=== PATIENT | male | born 1995 | race Caucasian/White ===

== ENCOUNTER 2016-08-31 18:28 | Emergency (ER) | payer BC ==
[2016-08-31] MEDS ORDERED: Lactated Ringers 1,000 ML IV ONE (18:58)
[2016-08-31] MEDS ORDERED: Famotidine 20 MG/2 ML SDV IVPUSH ONE (18:58)
[2016-08-31] MEDS ORDERED: Pantoprazole 40 MG Vial IVPUSH ONE (18:58)
[2016-08-31] MEDS ORDERED: Sodium Chloride 0.9% 10 ML Syringe FLUSH PRN (18:58)
[2016-08-31] MEDS ORDERED: Ondansetron 4 MG/2 ML SDV IVPUSH ONE (18:58)
--- NOTE | 2016-08-31 18:58 | EDM.PDOC ---
ED HPI GENERAL MEDICAL PROBLEM - General Chief Complaint: General Stated Complaint: cough, cold Time Seen by Provider: 08/31/16 18:50 Source of Information: Reports: Patient, Old records ([facility] chart/EMR) History Limitations: Reports: No Limitations - History of Present Illness INITIAL COMMENTS - FREE TEXT/NARRATIVE: The patient drove himself to the emergency room for evaluation of nonspecific fever, chills, mild sore throat, nasal drainage, mild clear productive cough, mild anorexia, nonspecific mild abdominal pain, mild nausea without emesis, and generalized arthralgias with patient rating his generalized arthralgias at 8/ 10. He denies any known exposure to infection, however he did not get his influenza booster this season. The patient did miss work for the last 2 days secondary to the symptoms with symptoms starting about 3 days ago. He did not measure his temperature with last ibuprofen dose of 800 mg yesterday with no antipyretic medications or other medications today Onset: gradual Duration: Day(s): (As above) Location: Reports: generalized Severity: moderate Improves with: Reports: None Worsens with: Reports: None Context: Reports: Other (As above) Associated Symptoms: Reports: cough, cough w sputum, diaphoresis, fever/chills, headaches, loss of appetite, nausea/vomiting, weakness (Nonspecific generalized) . 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 Denies: Allergic rhinitis, Glaucoma, Hard of hearing, Impaired vision, Macular degeneration, Retinal detachment Other HEENT History: recurrent otitis media as a child Cardiovascular History: Denies: Afib, Aneurysm, Arrhythmia, Blood clots/VTE/DVT , CAD, Heart murmur, High cholesterol, Hypertension, Syncope Respiratory History: Reports: None. Denies: Asthma, COPD, Intubation, previous , PE, Pneumothorax, Sleep apnea Gastrointestinal History: Reports: None. Denies: Celiac disease, Cholelithiasis , Chronic constipation, Chronic diarrhea, Gastritis, GERD, GI bleed, Hepatitis, Helicobacter pylori, Hiatal hernia, Inflammatory bowel disease, Irritable bowel syndrome, Jaundice, Pancreatitis, PUD Genitourinary History: Denies: Acute renal failure, BPH, Chronic renal insuffiency, Renal calculus, Retention, urinary, STD, Urinary incontinence, UTI , recurrent Musculoskeletal History: Reports: None. Denies: Amputation, Arthritis, Back pain, chronic, Fracture, Gout, Neck pain, chronic, Osteoarthritis, RA, SLE Neurological History: Reports: Concussion, Head trauma, Other (see below). Denies: Cerebral aneurysms, CVA, Headaches, chronic, Migraines, Seizure, TIA Other Neuro History: Head concussions at age 12 Psychiatric History: Reports: None. Denies: Abuse, victim of, ADD, ADHD, Addiction, Anxiety, Depression, Psych Hospitalization(s), PTSD, Suicide attempt , Suicidal ideation Endocrine/Metabolic History: Reports: None. Denies: Diabetes, type I, Diabetes , type II, Hypothyroidism, IDDM Hematologic History: Reports: None. Denies: Anemia, Blood transfusion(s), Iron deficiency Immunologic History: Reports: None. Denies: AIDS, HIV, SLE Oncologic (Cancer) History: Reports: None. Denies: Basal cell carcinoma, Hodgkin's Lymphoma, Lymphoma, Malignant melanoma, Non-Hodgkin's Lymphoma, Squamous cell carcinoma Dermatologic History: Denies: Eczema, Psoriasis - Infectious Disease History Infectious Disease History: Reports: Chicken pox. Denies: C-difficile, Measles , Meningitis, Mononucleosis, MRSA, Mumps, Pertussis (whooping cough), Rheumatic Fever, Rubella, Scarlet fever, Shingles, VRE - Past Surgical History Head Surgeries/Procedures: Reports: None HEENT Surgical History: Reports: Myringotomy w tube(s), Other (see below). Denies: Adenoidectomy, Detached retina, Eye surgery, Laser surgery, LASIK, Naso- sinus surgery, Oral surgery, Tonsillectomy Other HEENT Surgeries/Procedures: Bilateral PE tubes as a child Cardiovascular Surgical History: Reports: None. Denies: Varicose Respiratory Surgical History: Reports: None. Denies: Thoracentesis GI Surgical History: Denies: Appendectomy, Cholecystectomy, Colonoscopy, EGD, Hernia, abdominal, Hernia, inguinal, Hernia repair/other, Polypectomy Male Surgical History: Reports: Circumcision, Other (see below). Denies: Vasectomy Other Male Surgeries/Procedures: Circumcision as an Endocrine Surgical History: Reports: None. Denies: Thyroid biopsy Neurological Surgical History: Reports: None. Denies: C-Spine, Discectomy, Laminectomy, Lumbar spine, Sacral Spine, Spinal fusion, Vertebroplasty Musculoskeletal Surgical History: Reports: None. Denies: Arthroscopic procedure , Carpal tunnel, Ganglion cyst, Joint replacement, ORIF, Shoulder surgery Oncologic Surgical History: Reports: None Dermatological Surgical History: Reports: None - Past Imaging History Past Imaging History: Reports: CAT scan (CT scan of the head at age 12 secondary to previous head concussion) Social & Family History - Tobacco Use Smoking Status *Q: Current Every Day Smoker Tobacco Use Within Last Twelve Months: Cigarettes Years of Tobacco use: 6 Packs/Tins Daily: 0.5 (Maximum use of 1 pack per day) Smoking Cessation Information Provided To Patient: Yes Second Hand Smoke Exposure: No - Caffeine Use Caffeine Use: Reports: Coffee (3 cup per day), Soda (2 Sodas per week), Tea (1 Glass per week). Denies: Energy drinks - Alcohol Use Alcohol Use History: Yes Days Per Week of Alcohol Use: 1 (No previous DWIs, problems with alcohol abuse, etc.) Number of Drinks Per Day: 2 (Usually beer) Total Drinks Per Week: 2 Alcohol Use in Last Twelve Months: Yes Alcohol Use Frequency: Socially - Recreational Drug Use Recreational Drug Use: No Drug Use in Last 12 Months: No Recreational Drug Type: Denies: Amphetamines (Speed), Cocaine, Heroin, Inhalants (Glues, Solvents, Aerosols), LSD (Acid), Marijuana/Hashish, Methamphetamine, Morphine - Living Situation & Occupation Living situation: Reports: single (One child), with significant other ( Significant other and son), alone Occupation: employed (Air-condition and refresh technician) ED ROS GENERAL - Review of Systems Review Of Systems: See Below Constitutional: Reports: Fever (Temperature not measured), Chills, Weakness ( Nonspecific generalized), Fatigue (Nonspecific generalized), Night Sweats, Decreased Appetite. Denies: Diaphoresis, Weight Loss, Weight Gain HEENT: Reports: Rhinitis, Throat Pain. Denies: Contact Lenses, Dental Pain, Ear Discharge, Ear Pain, Eye Discharge, Eye Pain, Glasses, Hearing Loss, Nose Pain, Sinus Problem, Throat Swelling, Vertigo, Vision Change Respiratory: Reports: Cough, Sputum (Clear). Denies: Wheezing, Pleuritic Chest Pain, Hemoptysis Cardiovascular: Reports: No Symptoms. Denies: Chest Pain, Blood Pressure Problem, Dyspnea on Exertion, Edema, Lightheadedness, Orthopnea, Palpitations, Syncope Endocrine: Reports: No Symptoms. Denies: Fatigue GI/Abdominal: Reports: Abdominal Pain (Nonspecific generalized), Anorexia, Nausea, Other (Normal bowel movement today). Denies: Black Stool, Bloody Stool , Constipation, Diarrhea, Decreased Appetite, Difficulty Swallowing, Distension , Flatus, Hematemesis, Hematochezia, Melena, Mucous in Stool, Stool Incontinence , Vomiting : Reports: No Symptoms. Denies: Discharge, Dysuria, Flank Pain, Frequency, Hematuria, Incontinence, Pain, Urgency, Urinary Retention Musculoskeletal: Reports: Joint Pain (Generalized), Muscle Pain (Generalized). Denies: Joint Swelling Skin: Reports: No Symptoms. Denies: Pallor, Diaphoresis, Pruritis, Rash, Wound Neurological: Reports: Weakness (Nonspecific generalized). Denies: Confusion, Dizziness, Headache, Numbness, Paresthesia, Tingling Psychiatric: Reports: No Symptoms. Denies: Agitation, Anxiety, Confusion, Depression, Hallucinations, Suicidal Ideation Hematologic/Lymphatic: Reports: No Symptoms Immunologic: Reports: No Symptoms ED EXAM, GENERAL - Physical Exam Exam: See Below Exam Limited By: No Limitations General Appearance: Alert, WD/WN, No Apparent Distress Eye Exam: Bilateral Eye: EOMI, Normal Inspection (No nystagmus), PERRL Ears: Normal External Exam, Normal Canal, Hearing Grossly Normal, Normal TMs ( With exception of moderate bilateral scarring left greater than right secondary to previous otitis media) Nose: Normal Mucosa, No Blood, Clear Rhinorrhea (Mild bilateral) Throat/Mouth: Normal Lips, Normal Oropharynx (Trace erythema posterior pharynx and tonsils with no pinpoint white exudates or peritonsillar abscess, mild dry oral mucosa), Normal Voice, No Airway Compromise. No: Normal Teeth (Who is in care at the base of right first premolar), Dysphagia, Perioral Cyanosis Head: Atraumatic, Normocephalic. No: Facial Swelling, Facial Tenderness, Sinus Tenderness Neck: Normal Inspection, Supple, Non-Tender, Full Range of Motion. No: Lymphadenopathy (L), Lymphadenopathy (R), Thyromegaly Respiratory/Chest: No Respiratory Distress, Lungs Clear, Normal Breath Sounds, No Accessory Muscle Use, Chest Non-Tender. No: Pleural Rub, Retractions Cardiovascular: Normal Peripheral Pulses, No Edema, No Gallop, No JVD, No Murmur , No Rub, Tachycardia (Secondary to fever, regular rhythm). No: Gallop/S3, Gallop/S4, Friction Rub Peripheral Pulses: 4+: Radial (L), Radial (R) GI/Abdominal: Normal Bowel Sounds, Soft, Non-Tender, No Organomegaly, No Distention, No Abnormal Bruit, No Mass. No: Guarding (Male) Exam: Deferred Rectal (Males) Exam: Deferred Back Exam: Normal Inspection, Full Range of Motion. No: CVA Tenderness (L), CVA Tenderness (R), Muscle Spasm Extremities: Normal Inspection, Normal Range of Motion, Non-Tender, Normal Capillary Refill, No Pedal Edema Neurological: Alert, Oriented, CN II-XII Intact, Normal Cognition, Normal Gait, No Motor/Sensory Deficits Psychiatric: Normal Affect Skin Exam: Warm, Dry, Intact, Normal Color, No Rash. No: Diaphoretic, Lymphangitis, Wound/Incision Lymphatic: No Adenopathy Course - Vital Signs Last Recorded V/S: Last Vital Signs Temp 38.9 C H 08/31/16 20:05 Pulse 105 H 08/31/16 20:05 Resp 16 08/31/16 20:05 BP 136/43 L 08/31/16 20:05 Pulse Ox 99 08/31/16 20:05 Vital Signs - 24 hr 08/31/16 08/31/16 18:34 20:05 Temperature [ 38.9 C H Oral] Temperature [ 38.3 C H Temporal] Pulse, 105 H Peripheral [ Right Pulse Oximetry] Respiratory 18 16 Rate Blood Pressure 131/68 136/43 L [Right Upper Arm] O2 Sat by Pulse 99 99 Oximetry - Orders/Labs/Meds Orders: Active Orders 24 hr Category Date Time Status Peripheral IV Care [RC] . DIRECTED Care 08/31/16 18:58 Active Nothing Per Oral Diet [DIET] Diet 08/31/16 Breakfast Active Abdomen Series w Chest 1V [CR] Stat Exams 08/31/16 18:58 Taken AMYLASE [CHEM] Routine Lab 08/31/16 19:10 Received CULTURE BLOOD [BC] Stat Lab 08/31/16 19:10 Received CULTURE BLOOD [BC] Stat Lab 08/31/16 19:50 Received CULTURE STREP A CONFIRMATION [RM] Stat Lab 08/31/16 18:50 Results STREP SCRN A RAPID W CULT CONF [RM] Stat Lab 08/31/16 18:50 Results Sodium Chloride 0.9% [Saline Flush] Med 08/31/16 18:58 Active 10 ml FLUSH ASDIRECTED PRN Blood Culture x2 Reflex Set [OM.PC] Urgent Oth 08/31/16 18:58 Ordered Obtain Past Medical Record [OM.PC] Urgent Oth 08/31/16 18:58 Active Peripheral IV Insertion Adult [OM.PC] Stat Oth 08/31/16 18:58 Ordered Resuscitation Status Stat Resus Stat 08/31/16 18:58 Ordered Medication Orders Sodium Chloride (Saline Flush) 10 ml FLUSH ASDIRECTED PRN PRN Reason: Keep Vein Open Last Admin: 08/31/16 19:33 Dose: 10 ml Labs: Laboratory Tests 08/31/16 08/31/16 08/31/16 Range/Units 19:10 19:10 19:10 WBC 5.8 (4.0-10.2) K/uL RBC 5.15 (4.33-5.41) M/uL Hgb 15.7 (13.1-16.8) g/dL Hct 44.9 (39.0-49.0) % MCV 87.2 (84.0-98.0) fL MCH 30.5 (28.2-33.3) pg MCHC 35.0 (31.7-36.0) g/dL RDW 12.4 (11.2-14.1) % Plt Count 186 (150-350) K/uL Neut % (Auto) 62.5 (45.0-80.0) % Lymph % (Auto) 28.4 (10.0-50.0) % [place] % (Auto) 8.8 (2.0-14.0) % Eos % (Auto) 0.0 (0.0-5.0) % Baso % (Auto) 0.3 (0.0-2.0) % Neut # (Auto) 3.62 (1.40-7.00) K/uL Lymph # (Auto) 1.65 (0.50-3.50) K/uL [place] # (Auto) 0.51 (0.00-1.00) K/uL Eos # (Auto) 0.00 (0.00-0.50) K/uL Baso # (Auto) 0.02 (0.00-0.20) K/uL PT 11.3 (9.8-11.7) SEC INR 1.1 APTT 31.1 H (23.5-30.0) SEC Sodium 131 L (136-145) mmol/L Potassium 3.6 (3.5-5.1) mmol/L Chloride 95 L (98-107) mmol/L Carbon Dioxide 25.7 (21.0-32.0) mmol/L BUN 12 (7-18) mg/dL Creatinine 0.95 (0.51-1.17) mg/dL Est Cr Clr Drug Dosing 118.37 mL/min Estimated GFR (MDRD) > 60 mL/min Glucose 98 (74-106) mg/dL Lactic Acid (0.4-2.0) mmol/L Uric Acid 6.4 (2.6-7.2) mg/dL Calcium 8.9 (8.5-10.1) mg/dL Magnesium 1.8 (1.8-2.4) mg/dL Total Bilirubin 0.3 (0.2-1.0) mg/dL AST 21 (15-37) U/L ALT 18 (12-78) U/L Alkaline Phosphatase 77 (46-116) IU/L Total Protein 7.8 (6.4-8.2) g/dL Albumin 4.3 (3.4-5.0) g/dL Lipase 58 L (73-393) U/L 08/31/16 Range/Units 19:10 WBC (4.0-10.2) K/uL RBC (4.33-5.41) M/uL Hgb (13.1-16.8) g/dL Hct (39.0-49.0) % MCV (84.0-98.0) fL MCH (28.2-33.3) pg MCHC (31.7-36.0) g/dL RDW (11.2-14.1) % Plt Count (150-350) K/uL Neut % (Auto) (45.0-80.0) % Lymph % (Auto) (10.0-50.0) % [place] % (Auto) (2.0-14.0) % Eos % (Auto) (0.0-5.0) % Baso % (Auto) (0.0-2.0) % Neut # (Auto) (1.40-7.00) K/uL Lymph # (Auto) (0.50-3.50) K/uL Owsley # (Auto) (0.00-1.00) K/uL Eos # (Auto) (0.00-0.50) K/uL Baso # (Auto) (0.00-0.20) K/uL PT (9.8-11.7) SEC INR APTT (23.5-30.0) SEC Sodium (136-145) mmol/L Potassium (3.5-5.1) mmol/L Chloride (98-107) mmol/L Carbon Dioxide (21.0-32.0) mmol/L BUN (7-18) mg/dL Creatinine (0.51-1.17) mg/dL Est Cr Clr Drug Dosing mL/min Estimated GFR (MDRD) mL/min Glucose (74-106) mg/dL Lactic Acid 0.9 (0.4-2.0) mmol/L Uric Acid (2.6-7.2) mg/dL Calcium (8.5-10.1) mg/dL Magnesium (1.8-2.4) mg/dL Total Bilirubin (0.2-1.0) mg/dL AST (15-37) U/L ALT (12-78) U/L Alkaline Phosphatase (46-116) IU/L Total Protein (6.4-8.2) g/dL Albumin (3.4-5.0) g/dL Lipase (73-393) U/L Blood Cultures x 2 collectied Microbiology 08/31/16 18:50 Group A Streptococcus Rapid Screen - Final Throat NEGATIVE STREP A SCREEN 08/31/16 18:50 Influenza Type A Antigen Screen - Final Nasal Aspirate, Unspecified NEGATIVE INFLUENZA A VIRUS AG Influenza Type B Antigen Screen - Final NEGATIVE INFLUENZA B VIRUS AG Meds: Medications Generic Name Dose Route Start Last Admin Trade Name Freq PRN Reason Stop Dose Admin Sodium Chloride 10 ml 08/31/16 18:58 08/31/16 19:33 Saline Flush FLUSH 10 ml ASDIRECTED PRN Administration Keep Vein Open Discontinued Medications Generic Name Dose Route Start Last Admin Trade Name Freq PRN Reason Stop Dose Admin Famotidine 40 mg 08/31/16 18:58 08/31/16 19:20 Pepcid IVPUSH 08/31/16 18:59 40 mg ONETIME ONE Administration Lactated Ringer's 1,000 mls @ 999 mls/hr 08/31/16 18:58 08/31/16 19:18 Ringers, Lactated IV 08/31/16 19:58 999 mls/hr .BOLUS ONE Administration Ketorolac Tromethamine 30 mg 08/31/16 19:17 08/31/16 19:22 Toradol IVPUSH 08/31/16 19:18 30 mg ONETIME ONE Administration Ondansetron HCl 4 mg 08/31/16 18:58 08/31/16 19:21 Zofran IVPUSH 08/31/16 18:59 4 mg ONETIME ONE Administration Pantoprazole Sodium 40 mg 08/31/16 18:58 08/31/16 19:20 Protonix Iv IVPUSH 08/31/16 18:59 40 mg ONETIME ONE Administration - Radiology Interpretation Free Text/Narrative:: Acute abdominal x-rays shows evidence of mild beginning pulmonary obstructive disease with no cardiomegaly, CHF, or pulmonary infiltrates. Mild scoliosis noted. Additional nonspecific mildly increased diffuse bowel gaseous pattern with very occasional fluid levels, however no free air or evidence of significant ileus or obstruction Departure - Departure Time of Disposition: 20:47 Disposition: Home, Self-Care 01 Condition: good Clinical Impression: Tobacco abuse counseling, Dehydration, Caries, Hyponatremia Upper respiratory infection Qualifiers: URI type: unspecified viral URI Qualified Code(s): J06.9 - Acute upper respiratory infection, unspecified - Discharge Information Prescriptions: Guaifenesin/Pseudoephedrne HCl [Mucinex D ER 600-60 mg Tablet] 1 each PO BID PRN #20 tab.er.12h PRN Reason: Cough Instructions: Viral Gastroenteritis, Adult, [id number], Upper Respiratory Infection, Adult, [id number] Forms: ED Department Discharge, Return to Work/School Form Additional Instructions: 1. Follow up with your regular provider in 10-14 days as needed, if symptoms persist. 2. Tylenol 650 mg by mouth every 4 hours and/or OTC ibuprofen 2-3 tabs by mouth every 6 hours with food as directed./needed. Next dose of ibuprofen as needed in 6 hours secondary to medications given in the emergency room 3. [place] diet including encouragement of oral fluids such as sports drinks, etc. for 24-48 hours as directed. Advance to regular diet as tolerated thereafter. 4. Work excuse- See Form 5. Stop all tobacco use SANJUANITA as directed/per provided information and consider contacting [employer], etc.. 6. Followup with your dentist SANJUANITA as discussed 7. Yearly influenza boosteris recommended 8. Listerine gargles four times per day, after meals and at bedtime, with additional Chloroseptic lozenges or spray as needed for 10 days and/or until symptoms resolve. - Problem List & Annotations (1) Upper respiratory infection SNOMED Code(s): 35936010 Code(s): J06.9 - ACUTE UPPER RESPIRATORY INFECTION, UNSPECIFIED Status: Acute Priority: High Current Visit: Yes Onset Date: ~08/28/16 Annotation /Comment:: Likely URI with secondary viral pharyngitis, bronchitis, possible beginning viral GE. Yearly influenza boosters encouraged. Work excuse provided with excuse starting from 08/29/16. Symptomatic relief as per discharge instructions. IV Toradol given in the emergency room for his fever and arthralgias Qualifiers: URI type: unspecified viral URI Qualified Code(s): J06.9 - Acute upper respiratory infection, unspecified; B97.89 - Other viral agents as the cause of diseases classified elsewhere (2) Dehydration SNOMED Code(s): 61492727 Code(s): E86.0 - DEHYDRATION Status: Acute Priority: High Current Visit : Yes Onset Date: ~08/31/16 Annotation/Comment:: One Liter of lactated Ringer's given in the emergency room. Encourage oral fluids as per discharge instructions (3) Tobacco abuse counseling SNOMED Code(s): 986087025, 278345969, 904388631 Code(s): Z71.6 - TOBACCO ABUSE COUNSELING Status: Chronic Priority: Medium Current Visit: Yes Annotation/Comment:: Tobacco cessation strongly encouraged with information provided especially in light of chest x-ray results as above and children in household (4) Caries SNOMED Code(s): 78024141 Code(s): K02.9 - DENTAL CARIES, UNSPECIFIED Status: Chronic Priority: Medium Current Visit: Yes Onset Date: ~08/31/16 Annotation/Comment:: Right lower caries with no direct evidence of abscess. Followup with dentist SANJUANITA as discussed (5) Hyponatremia SNOMED Code(s): 87940773 Code(s): E87.1 - HYPO-OSMOLALITY AND HYPONATREMIA Status: Acute Priority : Medium Current Visit: Yes Onset Date: 08/31/16 Annotation/Comment:: Lactated Ringer's given as above - Problem List Review Problem List Initiated/Reviewed/Updated: Yes - My Orders Last 24 Hours: My Active Orders 08/31/16 18:50 CULTURE STREP A CONFIRMATION [RM] Stat STREP SCRN A RAPID W CULT CONF [RM] Stat 08/31/16 18:58 Peripheral IV Care [RC] . DIRECTED Abdomen Series w Chest 1V [CR] Stat Sodium Chloride 0.9% [Saline Flush] 10 ml FLUSH ASDIRECTED PRN Blood Culture x2 Reflex Set [OM.PC] Urgent Obtain Past Medical Record [OM.PC] Urgent Peripheral IV Insertion Adult [OM.PC] Stat Resuscitation Status Stat 08/31/16 19:10 AMYLASE [CHEM] Routine CULTURE BLOOD [BC] Stat 08/31/16 19:50 CULTURE BLOOD [BC] Stat 08/31/16 Breakfast Nothing Per Oral Diet [DIET] - Assessment/Plan Last 24 Hours: My Active Orders 08/31/16 18:50 CULTURE STREP A CONFIRMATION [RM] Stat STREP SCRN A RAPID W CULT CONF [RM] Stat 08/31/16 18:58 Peripheral IV Care [RC] . DIRECTED Abdomen Series w Chest 1V [CR] Stat Sodium Chloride 0.9% [Saline Flush] 10 ml FLUSH ASDIRECTED PRN Blood Culture x2 Reflex Set [OM.PC] Urgent Obtain Past Medical Record [OM.PC] Urgent Peripheral IV Insertion Adult [OM.PC] Stat Resuscitation Status Stat 08/31/16 19:10 AMYLASE [CHEM] Routine CULTURE BLOOD [BC] Stat 08/31/16 19:50 CULTURE BLOOD [BC] Stat 08/31/16 Breakfast Nothing Per Oral Diet [DIET] Assessment:: As above Plan: As above. Extensive precautions were given to the patient and his significant other, who are in agreement with the treatment plan. Extensive precautions were given to the patient, who is in agreement with the treatment plan.
[2016-08-31] MEDS ORDERED: Ketorolac 30 MG/ML SDV IVPUSH ONE (19:17)
[2016-08-31 19:41] LABS: CHLORIDE,CL 95 mmol/L (98-107); SODIUM,NA 131 mmol/L (136-145)
[2016-08-31 20:06] VITALS: BP 136/43
== END 2016-08-31 20:47 | disposition home or self-care (01) ==
LOC: LL.ED 18:28
DX: J06.9 Acute upper respiratory infection, unspecified (principal); E86.0 Dehydration; K02.9 Dental caries, unspecified; E87.1 Hypo-osmolality and hyponatremia; F17.210 Nicotine dependence, cigarettes, uncomplicated; Z71.6 Tobacco abuse counseling
CPT/HCPCS: 36415; 74022; 80053; 82150; 83605; 83690; 83735; 84550; 85025; 85610; 85730; 87040; 87081; 87430; 87804; 96365; 96375; 99284; C9113; J1885; J2405; J7050; J7120; S0028